=== PATIENT | male | born 1990 | race Caucasian/White ===

== ENCOUNTER 2018-05-31 09:45 | Emergency (ER) | payer OTHER ==
[2018-05-31 09:51] VITALS: BP 124/77
[2018-05-31] MEDS ORDERED: LIDOCAINE VISCOUS 2% 15 ML UDC MM STA (09:58)
[2018-05-31] MEDS ORDERED: oxyCODONE 5 MG TABLET PO STA (09:58)
[2018-05-31] MEDS ORDERED: MAG HYDROX/AL HYDROX/SIMETH 30 ML UDC PO STA (09:58)
--- NOTE | 2018-05-31 10:01 | ED Physician Documentation ---
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 with increasing use of pain medication and about to run out of oxycodone.) Review of Systems Constitutional: denies: Fever, Chills Nose: denies: Rhinorrhea / runny nose, Congestion Throat: reports: Sore throat PD PAST MEDICAL HISTORY - Present Medications Home Medications: Ambulatory Orders Medication Instructions Recorded Confirmed Emtricitabine/Tenofovir [Truvada 1 each PO DAILY 05/31/18 05/31/18 100 mg-150 mg Tablet] Lidocaine HCl [Lidocaine HCl 5 ml MM Q4H PRN #100 ml 05/31/18 Viscous] oxyCODONE [Roxicodone] 5 mg PO Q4-6H 05/31/18 05/31/18 oxyCODONE [Roxicodone] 10 mg PO Q6H PRN #20 tablet 05/31/18 - Allergies Allergies/Adverse Reactions: Allergies Allergy/AdvReac Type Severity Reaction Status Date / Time No Known Drug Allergies Allergy Verified 05/31/18 09:50 PD ED PE NORMAL - Vitals Vital signs reviewed: Yes - General General: Alert and oriented X 3, No acute distress - HEENT HEENT: Other (Moist mucous membranes, appropriate appearance of the tonsillar pillars without evidence of infection or significant adenopathy or neck stiffness.) - Neck Neck: Supple, no meningeal sign, No bony TTP - Neuro Neuro: Alert and oriented X 3, Normal speech Results - Vitals Vitals: Vital Signs - 24 hr 05/31/18 09:48 Temperature 36.7 C Heart Rate 64 Respiratory 18 Rate Blood Pressure 124/77 O2 Saturation 98 Oxygen O2 Source Room air PD MEDICAL DECISION MAKING - ED course ED course: 27-year-old gentleman with post tonsillectomy pain. No evidence of infection and he does not appear dehydrated. Departure - Departure Disposition: 01 Home, Self Care Clinical Impression: Post-tonsillectomy pain Condition: Good Record reviewed to determine appropriate education?: Yes Instructions: Tonsillectomy Prescriptions: Lidocaine HCl [Lidocaine HCl Viscous] 5 ml MM Q4H PRN #100 ml PRN Reason: mouth pain oxyCODONE [Roxicodone] 10 mg PO Q6H PRN #20 tablet PRN Reason: Pain Comments: Call your doctor to arrange a follow-up appointment, make the next available appointment. In the interim, return anytime if worse or if new symptoms develop.
== END 2018-05-31 10:17 | disposition home or self-care (01) ==
LOC: ED 09:45
DX: G89.18 Other acute postprocedural pain (principal)
CPT/HCPCS: 99283; A9270

== ENCOUNTER 2020-04-21 07:07 | Outpatient (CLI) | payer OTHER ==
--- NOTE | 2020-04-21 12:08 | MRI Report ---
PROCEDURE: Shoulder RT W/O INDICATIONS: STRAIN OF MUSCLE/TENDON OF RT SHLDR TECHNIQUE: Noncontrast oblique coronal T2 fast spin echo with fat saturation, oblique sagittal T1 spin echo and T2 fast spin echo with fat saturation, axial T1 spin echo and T2 fast spin echo with fat saturation t hrough the shoulder. COMPARISON: None. FINDINGS: Image quality: Excellent. Rotator cuff: Tendinosis and low to moderate grade articular surface partial thickness tear involving distal supraspinatus at its insertion on the humeral head is seen extending to musculotendinous junc tion. Distal infraspinatus tendinosis and low-grade articular surface partial-thickness tear is also seen. Tendinosis and low-grade partial-thickness tear involving superior fibers of distal subscapular is is seen. No full-thickness rotator cuff tendon rupture. No rotator cuff muscle atrophy on sagittal images. Bones and bursae: No bone marrow contusions or fractures. No acromioclavicular joint degeneration. The acromion demonstrates conventional anatomy, without an os acromiale. No pathologic subacromial/ subdeltoid bursal fluid is present. Capsule and soft tissues: In the absence of intra-articular contrast, the labrum and glenohumeral li gaments appear intact. The long head of the biceps tendon demonstrates normal location and morpholog y. The rotator interval appears normal, without fibrosis. The coracohumeral ligament is normal in t hickness. IMPRESSION: 1. Tendinosis and low to moderate grade articular surface partial thickness tear involving distal sup raspinatus and infraspinatus at their insertion on the humeral head extending to musculotendinous austen ction. Tendinosis and low-grade partial-thickness tear involving superior fibers of distal subscapula ris. No full-thickness rotator cuff tendon rupture. No muscle atrophy. 2. No marrow edema. No fracture or dislocation. 3. No evidence of focal labral tear. Reviewed by: Truman Pressley MD on 04/21/2020 12:07 PM PDT Approved by: Truman Pressley MD on 04/21/2020 12:07 PM PDT Station ID: [id number]
== END 2020-04-21 07:08 | disposition home or self-care (01) ==
LOC: DI 07:07
PROVIDERS: ATTEND Student in an Organized Health Care Education/Training Program
DX: S46.021A Laceration of muscle(s) and tendon(s) of the rotator cuff of right shoulder, initial encounter (principal)

== ENCOUNTER 2022-08-21 12:24 | Emergency (ER) | payer OTHER ==
[2022-08-21 12:42] VITALS: BP 108/63
--- NOTE | 2022-08-21 13:14 | ED Physician Documentation ---
History of Present Illness - Stated complaint Stated Complaint: HEADACHE,SOB,FLU LIKE SYMPTOMS - Chief complaint Chief Complaint: General - Additonal information Additional information: History provided by patient. Reliable historian. 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 Reports that 72 hours ago he had flulike symptoms at home that included headache, subjective fevers body aches. Since then most of the symptoms have begun to get better though he continues to have a headache and today he reports that he was confused at home. He states that his would talk to him and ask him questions but he would be unable to respond. He states he simply stares off blankly into space. When he took to his flight surgeon about this he was told to come to the ER for an MRI. Patient has an NIHSS of 0 on presentation to the ER. Review of Systems Constitutional: reports: Fever, Myalgias Eyes: reports: Reviewed and negative Ears: reports: Reviewed and negative Nose: reports: Reviewed and negative Throat: reports: Reviewed and negative Cardiac: reports: Reviewed and negative Respiratory: reports: Reviewed and negative GI: reports: Reviewed and negative Neurologic: reports: Confused. denies: Head injury, LOC Psychiatric: reports: Reviewed and negative PD PAST MEDICAL HISTORY - Past Medical History Past Medical History: Yes Cardiovascular: None Respiratory: None Neuro: None Endocrine/Autoimmune: None GI: None : None HEENT: None Psych: Anxiety Musculoskeletal: None Derm: None - Past Surgical History Past Surgical History: Yes General: Appendectomy HEENT: Tonsil/Adenoidectomy - Present Medications Home Medications: Ambulatory Orders Medication Instructions Recorded Confirmed Sertraline HCl [Zoloft] 100 mg PO DAILY 08/21/22 08/21/22 - Allergies Allergies/Adverse Reactions: Allergies Allergy/AdvReac Type Severity Reaction Status Date / Time No Known Drug Allergies Allergy Verified 08/21/22 12:42 - Social History Does the pt smoke?: No Smoking Status: Never smoker Does the pt drink ETOH?: Yes Does the pt have substance abuse?: No - Immunizations Immunizations are current?: Yes - POLST Patient has POLST: No PD ED PE NORMAL - General General: Alert and oriented X 3, No acute distress - Neck Neck: Supple, no meningeal sign, No adenopathy - Cardiac Cardiac: RRR, No murmur - Respiratory Respiratory: No respiratory distress, Clear bilaterally - Abdomen Abdomen: Normal bowel sounds, Soft - Extremities Extremities: No deformity, No tenderness to palpate, Normal ROM s pain - Neuro Neuro: Alert and oriented X 3, 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, No motor deficit, No sensory deficit, Normal speech, Other (NIHSS of 0) Eye Opening: Spontaneous Motor: Obeys Commands Verbal: Oriented GCS Score: 15 Results - Vitals Vitals: Vital Signs - 24 hr 08/21/22 08/21/22 08/21/22 12:37 12:40 13:46 Temperature 36.5 C Heart Rate 55 L Respiratory 16 16 15 Rate Blood Pressure 108/63 O2 Saturation 97 08/21/22 14:14 Temperature Heart Rate Respiratory 16 Rate Blood Pressure O2 Saturation Oxygen O2 Source Room air - Rads (name of study) head CT Radiology: Final report received (No acute intracranial process) PD Medical Decision Making - ED course Complexity details: reviewed results, re-evaluated patient, d/w patient ED course: Through 2-year-old male sent to emergency department by his flight surgeon for evaluation of reported confusion after flulike illness that began 3 days ago. On exam the patient has an unremarkable neurological as well as a cardiopulmonary exam. He has had no fevers. He has tested negative for COVID and the flu. His NIHSS was 0. However his flight surgeon was requesting an MRI. The cough remains was made with a CT scan which was ultimately negative. At this time he is discharged home in stable condition Departure - Departure Disposition: 01 Home, Self Care Clinical Impression: Headache Qualifiers: Headache type: unspecified Headache chronicity pattern: acute headache Intractability: not intractable Qualified Code(s): R51.9 - Headache, unspecified Comments: You were advised to come to the emergency department for an MRI as you recently had flulike symptoms and reported to your flight surgeon today that you had spaced out at home and your was concerned that you are not understanding her. Here in the emergency department your neurological and cardiopulmonary exam are entirely unremarkable. The CT of your head was also normal. Please discuss this with your flight surgeon. However clinically at this time there is nothing to suggest an infection within the brain or a stroke
--- NOTE | 2022-08-21 14:33 | CT Report ---
PROCEDURE: HEAD WO INDICATIONS: confusion TECHNIQUE: Noncontrast 4.5 mm thick angled axial sections acquired from the foramen magnum to the vertex. For r adiation dose reduction, the following was used: automated exposure control, adjustment of mA and/or kV according to patient size. COMPARISON: None. FINDINGS: Image quality: Excellent. CSF spaces: Basal cisterns are patent. No extra-axial fluid collections. Ventricles are normal in size and shape. Brain: No midline shift. No intracranial masses or hemorrhage. Camargo-white matter interface is norm al. Skull and face: Calvarium and visualized facial bones are intact, without suspicious lesions. Sinuses: Visualized sinuses and mastoids are clear. IMPRESSION: No evidence acute intracranial process. Reviewed by: Neri Tran MD on 08/21/2022 2:32 PM PST Approved by: Neri Tran MD on 08/21/2022 2:32 PM [facility] Station ID: [id number]
== END 2022-08-21 14:56 | disposition home or self-care (01) ==
LOC: ED 12:24
DX: R51.9 Headache, unspecified (principal)
CPT/HCPCS: 99283; 99284

== ENCOUNTER 2023-02-19 08:34 | Emergency (ER) | payer OTHER ==
[2023-02-19 09:11] LABS: BASOPHILS % (AUTO) 0.8 %; EOSINOPHILS # (AUTO) 0.1 10^3/uL (0.0-0.7); EOSINOPHILS % (AUTO) 1.5 %; HCT - HEMATOCRIT 41.7 % (42.0-52.0); HGB - HEMOGLOBIN 14.5 g/dL (14.0-18.0); LYMPHOCYTES # (AUTO) 1.4 10^3/uL (1.5-3.5); LYMPHOCYTES % (AUTO) 36.3 %; MEAN CORPUSCULAR HEMOGLOBIN 30.5 pg (27.0-31.0); MEAN CORPUSCULAR HGB CONC 34.8 g/dL (32.0-36.0); MEAN CORPUSCULAR VOLUME 87.6 fL (80.0-94.0); MEAN PLATELET VOLUME 9.1 fL (7.4-11.4); MONOCYTES # (AUTO) 0.4 10^3/uL (0.0-1.0); MONOCYTES % (AUTO) 10.3 %; NEUTROPHILS % (AUTO) 50.8 %; PLT - PLATELET COUNT 184 10^3/uL (130-450); RED BLOOD COUNT 4.76 10^6/uL (4.70-6.10); RED CELL DISTRIBUTION WIDTH 12.7 % (12.0-15.0); WHITE BLOOD COUNT 3.9 x10^3/uL (4.8-10.8)
--- NOTE | 2023-02-19 09:11 | ED Physician Documentation ---
PD HPI NVD - Stated complaint Stated Complaint: ABD PX,BLEEDING,DIARRHEA - Chief complaint Chief Complaint: Abd Pain - History obtained from History obtained from: Patient - History of Present Illness Timing - onset: How many weeks ago (2) Timing - duration: Weeks (2) Timing - details: Abrupt onset, Still present, Waxing and waning (has had diarrhea the whole 2 weeks, from 2-3 up to 6-8 times daily, with watery/to loose but no formed. 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 He states bottle/tap water and was not camping/ no groundwater ingestion. Other members of his unit are wll without diarrhea among them.). No: Sick contact, Bad food Improved by: No: Meds (loperamide OTC has not had much improvement in the diarrhea.) Worsened by: Eating Similar symptoms before: Has not had sx before Recently seen: Not recently seen Review of Systems Constitutional: reports: Fever, Chills, Myalgias Nose: denies: Rhinorrhea / runny nose, Congestion Throat: denies: Sore throat Respiratory: denies: Cough GI: reports: Abdominal Pain, Nausea, Diarrhea. denies: Vomiting, Constipation, Hematemesis : denies: Dysuria Skin: denies: Rash, Lesions PD PAST MEDICAL HISTORY - Past Medical History Cardiovascular: None Respiratory: None Neuro: None Endocrine/Autoimmune: None GI: None : None HEENT: None Psych: Anxiety Musculoskeletal: None Derm: None - Past Surgical History Past Surgical History: Yes General: Appendectomy HEENT: Tonsil/Adenoidectomy - Present Medications Home Medications: Ambulatory Orders Medication Instructions Recorded Confirmed Sertraline HCl [Zoloft] 100 mg PO DAILY 08/21/22 02/19/23 Azithromycin [Zithromax] 0 mg PO DAILY #6 tablet 02/19/23 Diphenoxylate/Atropine [Lomotil] 1 each PO QID PRN #12 tablet 02/19/23 Naproxen 500 mg PO BID #20 tab 02/19/23 Ondansetron Odt [Zofran] 4 mg TL Q6H PRN #10 tablet 02/19/23 - Allergies Allergies/Adverse Reactions: Allergies Allergy/AdvReac Type Severity Reaction Status Date / Time No Known Drug Allergies Allergy Verified 02/19/23 08:44 - Social History Does the pt smoke?: No Smoking Status: Never smoker Does the pt drink ETOH?: Yes Does the pt have substance abuse?: No - Immunizations Immunizations are current?: Yes - POLST Patient has POLST: No PD ED PE NORMAL - Vitals Vital signs reviewed: Yes - General General: Alert and oriented X 3, No acute distress, Well developed/nourished - HEENT HEENT: Pharynx benign - Neck Neck: Supple, no meningeal sign, No adenopathy - Cardiac Cardiac: RRR, No murmur - Respiratory Respiratory: Clear bilaterally - Abdomen Abdomen: Normal bowel sounds, Soft, Non distended, No organomegaly, Other (tender LLQ area with mild guarding but no percussion tenderness nor rebound. Normal inguinal area and femoral pulses. ) - Male Male : Deferred - Rectal Rectal: Deferred - Back Back: No CVA TTP - Derm Derm: Normal color, Warm and dry Results - Vitals Vitals: Vital Signs - 24 hr 02/19/23 02/19/23 02/19/23 08:40 11:01 12:20 Temperature 35.9 C L Heart Rate 67 49 L 50 L Respiratory 20 18 18 Rate Blood Pressure 122/76 114/67 103/55 L O2 Saturation 96 96 98 02/19/23 13:10 Temperature 36.4 C L Heart Rate Respiratory 17 Rate Blood Pressure O2 Saturation Oxygen O2 Source Room air - Labs Labs: Laboratory Tests 02/19/23 02/19/23 02/19/23 08:57 08:57 08:57 WBC 3.9 L RBC 4.76 Hgb 14.5 Hct 41.7 L MCV 87.6 MCH 30.5 MCHC 34.8 RDW 12.7 Plt Count 184 MPV 9.1 Neut # (Auto) 2.0 Lymph # (Auto) 1.4 L Bradford # (Auto) 0.4 Eos # (Auto) 0.1 Baso # (Auto) 0.0 Absolute Nucleated RBC 0.00 Nucleated RBC % 0.0 ESR 10 Sodium 135 Potassium 3.8 Chloride 105 Carbon Dioxide 27 Anion Gap 3.0 L BUN 17 Creatinine 1.0 Estimated GFR (MDRD) 87 L Glucose 91 Calcium 9.0 Total Bilirubin 0.3 AST 29 ALT 30 Alkaline Phosphatase 73 Total Protein 7.2 Albumin 4.3 Globulin 2.9 Albumin/Globulin Ratio 1.5 Lipase 19 Urine Color Urine Clarity Urine pH Ur Specific Allen Urine Protein Urine Glucose (UA) Urine Ketones Urine Occult Blood Urine Nitrite Urine Bilirubin Urine Urobilinogen Ur Leukocyte Esterase Ur Microscopic Review Urine Culture Comments Stool Leukocytes, Qual Stl C. diff Tox B Gene 02/19/23 02/19/23 02/19/23 09:00 10:02 10:02 WBC RBC Hgb Hct MCV MCH MCHC RDW Plt Count MPV Neut # (Auto) Lymph # (Auto) Bradford # (Auto) Eos # (Auto) Baso # (Auto) Absolute Nucleated RBC Nucleated RBC % ESR Sodium Potassium Chloride Carbon Dioxide Anion Gap BUN Creatinine Estimated GFR (MDRD) Glucose Calcium Total Bilirubin AST ALT Alkaline Phosphatase Total Protein Albumin Globulin Albumin/Globulin Ratio Lipase Urine Color DARK YELLOW Urine Clarity CLEAR Urine pH 5.5 Ur Specific Allen >=1.030 H Urine Protein NEGATIVE Urine Glucose (UA) NEGATIVE Urine Ketones NEGATIVE Urine Occult Blood NEGATIVE Urine Nitrite NEGATIVE Urine Bilirubin NEGATIVE Urine Urobilinogen 0.2 (NORMAL) Ur Leukocyte Esterase NEGATIVE Ur Microscopic Review NOT INDICATED Urine Culture Comments NOT INDICATED Stool Leukocytes, Qual NEGATIVE Stl C. diff Tox B Gene NEGATIVE - Rads (name of study) abd/pelvic CT Relevant Findings:: Prelim report reviewed (no acute process seen on CT.), EMP independent interpretation of test PD Medical Decision Making - ED course Complexity details: reviewed results (c. diff negative (resulted later in afternoon). Leuks and calprotectin still pending. I had ordered stool culture, I believe, but is off the order screen, so not sure and lab not able to add it on. Can empirically treat for presumed infectious with zithromax. CT abd did not show localized colitis. ), considered differential (persistent diarrhea with cramps and now fevers, bloody stools (red) and increased pains LLQ. Consider colitis, diverticulitis, C. diff, infectious (salmonella, shigella, etc). Can get stool studies and labs. CT scan. ), d/w patient Departure - Departure Disposition: 01 Home, Self Care Clinical Impression: Diarrhea, Left sided abdominal pain Condition: Stable Record reviewed to determine appropriate education?: Yes Follow-Up: AGATHA Kellogg [Provider Group] Prescriptions: Diphenoxylate/Atropine [Lomotil] 1 each PO QID PRN #12 tablet PRN Reason: Diarrhea Naproxen 500 mg PO BID #20 tab Azithromycin [Zithromax] 0 mg PO DAILY #6 tablet Ondansetron Odt [Zofran] 4 mg TL Q6H PRN #10 tablet PRN Reason: Nausea / Vomiting Comments: Small frequent fluids. Ondansetron if needed for nausea. Your CT scan did not show any abdominal process. Presume there is some inflammation or irritation of the intestinal wall causing the diarrhea and some bleeding. Commonly we think this is likely to be a infectious cause. Right now the stool studies are still pending. Will look at them this afternoon when they result and see which antibiotic would be most appropriate based on that. Meanwhile stay well-hydrated. Nausea medicine if needed. Lomotil if needed for diarrhea. Naproxen anti-inflammatory twice daily for cramps and pains. Add Tylenol every 4-6 hours if needed. I sent your prescriptions to your preferred pharmacy. Rest off work today and likely tomorrow. Will add in an antibiotic to your pharmacy later this afternoon based on the stool studies. Forms: PCP List, Activity restrictions Discharge Date/Time: 02/19/23 13:05
[2023-02-19 09:13] LABS: BILIRUBIN,URINE NEGATIVE (NEGATIVE); GLUCOSE, URINE (UA) NEGATIVE (NEGATIVE); KETONES,URINE (UA) NEGATIVE (NEGATIVE); LEUKOCYTE ESTERASE, URINE NEGATIVE (NEGATIVE); NITRITE,URINE NEGATIVE (NEGATIVE); OCCULT BLOOD,URINE NEGATIVE (NEGATIVE); PH,URINE 5.5 PH (5.0-7.5); PROTEIN,URINE NEGATIVE (NEGATIVE); UROBILINOGEN,URINE 0.2 (NORMAL) E.U./dL (NORMAL)
[2023-02-19 09:16] LABS: CLARITY,URINE CLEAR (CLEAR)
[2023-02-19 09:24] LABS: ALBUMIN 4.3 g/dL (3.2-5.5); ALBUMIN/GLOBULIN RATIO 1.5 (1.0-2.2); BILIRUBIN,TOTAL 0.3 mg/dL (0.2-1.0); POTASSIUM 3.8 mmol/L (3.5-4.5); TOTAL PROTEIN 7.2 g/dL (6.4-8.9)
[2023-02-19] MEDS ORDERED: KETOROLAC 15 MG/ML VIAL IVP STA (09:47)
[2023-02-19] MEDS ORDERED: SODIUM CHLORIDE 0.9% 1,000 ML IV STA (09:47)
[2023-02-19] MEDS ORDERED: ONDANSETRON 4 MG/2 ML VIAL IVP STA (09:47)
[2023-02-19] MEDS ORDERED: iohexoL-300 100 ML VIAL IVP ONE (11:14)
--- NOTE | 2023-02-19 11:22 | CT Report ---
PROCEDURE: ABDOMEN/PELVIS W INDICATIONS: lower left abd pain, diarrhea 2 weeks CONTRAST: 100ml Omni 300 TECHNIQUE: After the administration of intravenous contrast, 5 mm thick sections acquired from the diaphragms to the symphysis. 5 mm thick coronal and sagittal reformats were acquired. For radiation dose reducti on, the following was used: automated exposure control, adjustment of mA and/or kV according to sam ent size. COMPARISON: None FINDINGS: Image quality: Excellent. Lung bases and heart: 5 mm pulmonary nodule, extreme right lung base.. Liver: Very mild diffuse hepatic steatosis. No focal solid mass. Gallbladder and biliary tree: No radiopaque stones or wall thickening. No biliary dilation. Spleen: No splenomegaly. Pancreas: Unremarkable Adrenals: No adrenal nodule. Kidneys and ureters: No hydronephrosis. No renal cystic lesion which requires follow up. No solid mas s. Bowel and peritoneum: No bowel distension. No pathologic free fluid. Lymph nodes: No central or retroperitoneal adenopathy. Vessels: No infrarenal aortic aneurysm. PELVIS Reproductive organs: Unremarkable. Bladder: No abnormal wall thickening, accounting for underdistension. Pelvic lymph nodes: No pelvic adenopathy by size criteria. Bones: No aggressive osseous abnormality. Other: No significant ventral or inguinal hernia. IMPRESSION: 1. 5 mm pulmonary nodule, extreme right lung base. 2. No evidence of acute abdominal process. 3. Mild diffuse hepatic steatosis. Comment: As per the Fleischner Society criteria,If the patient is at low risk for lung cancer follow up CT at 12 months, if unchanged, no further follow up needed. If the patient has risk factors for amina ng cancer, follow up chest CT at 6- 12 months, then at 18-24 months if no change. Reviewed by: Neri Tran MD on 02/19/2023 11:21 AM PDT Approved by: Neri Tran MD on 02/19/2023 11:21 AM PDT Station ID: [id number]
[2023-02-19 12:23] VITALS: BP 103/55; O2SAT 98
[2023-02-19] MEDS ORDERED: DIPHENOX/ATROPINE 2.5/0.025 MG TABLET PO STA (12:44)
== END 2023-02-19 13:05 | disposition home or self-care (01) ==
LOC: ED 08:34
DX: R10.9 Unspecified abdominal pain (principal); R19.7 Diarrhea, unspecified
CPT/HCPCS: 36415; 74177; 80053; 81003; 83630; 83690; 83993; 85025; 85651; 87493; 96361; 96374; 96375; 99284; A9270; Q9967; 81001; 87086